=== PATIENT | male | born 1975 | race African-American/Black ===

== ENCOUNTER → 2023-02-20 11:35 | Outpatient (BNVA) | payer OTHER, SELFPAY | PROVIDERS: PCP Family Medicine; Visit Provider Internal Medicine Cardiovascular Disease | DX: R00.2 Palpitations (principal) | CPT/HCPCS: 93246 ==

== ENCOUNTER 2024-06-14 12:51 | Outpatient (CLI) | payer OTHER, SELFPAY ==
--- NOTE | 2024-06-14 12:56 | MR_ITS ---
WS: [id number] MRI LUMBAR SPINE NONCONTRAST TECHNIQUE: Sagittal T1, T2 and STIR imaging. Axial T1 and T2 imaging. CLINICAL INFORMATION: LOW BACK PAIN W/RADICULOPATHY OF BILATERAL LOWER EXT COMPARISON: None. FINDINGS: Mild lumbar curve. No acute compression. Disc bulging worse at L4-L5 and L5-S1. L1-L2: Mild facet arthropathy. Spinal canal and foramen are patent. L2-L3: Mild annular bulging. Mild facet arthropathy. Spinal canal and foramen are patent. L3-L4: Mild annular bulging with slight narrowing of the RIGHT greater than LEFT subarticular recess. Mild facet arthropathy. Mild LEFT greater than RIGHT foraminal narrowing. L4-L5: Central disc protrusion with effacement of the ventral thecal sac. Slight impingement traversi ng L5 nerve roots bilaterally. Mild facet arthropathy. Eccentric disc bulging with mild bilateral for aminal narrowing. L5-S1: Shallow central protrusion. Slight effacement of the ventral thecal sac. Mild LEFT greater daryl n RIGHT foraminal narrowing. Mild facet arthropathy. Visualized pelvic bony structures: Normal. Paravertebral soft tissues: Normal. Small central protrusions in the thoracic spine most prominent at T7-T8 with slight indentation on th e thoracic cord and mild central canal stenosis. MR/MR lumbar spine wo con* [id number] IMPRESSION: 1. Broad-based central protrusion L4-5 with slight effacement of the ventral t hecal sac and impingement traversing L5 nerve roots bilaterally. 2. Shallow central protrusion L5-S1. 3. Disc bulging L3-4 with slight narrowing of the RIGHT greater than LEFT suba rticular recess. 4. Mild bilateral L4-5 foraminal narrowing. 5. Mild bilateral L5-S1 foraminal narrowing. 6. Central disc protrusion T7-T8 seen on the paster supervisor imaging. This can be furthe r evaluated with thoracic spine MRI.
== END 2024-06-14 12:52 | disposition home or self-care (01) ==
LOC: RAD 12:53
PROVIDERS: PCP Family Medicine; Visit Provider Nurse Practitioner Family
DX: M51.26 Other intervertebral disc displacement, lumbar region (principal); M51.24 Other intervertebral disc displacement, thoracic region
CPT/HCPCS: 72148